=== PATIENT | male | born 1960 ===

== ENCOUNTER → 2016-03-13 | Outpatient (CLI) | payer BC | LOC: GMA 17:27 | PROVIDERS: ATTEND Nurse Practitioner Family | DX: R10.84 Generalized abdominal pain (principal); R07.9 Chest pain, unspecified ==

== ENCOUNTER → 2016-03-26 | Outpatient (CLI) | payer SELFPAY ==
--- NOTE | 2016-03-26 11:25 | US ---
EXAM DESCRIPTION: US ABDOMEN CLINICAL HISTORY: GENERALIZED ABDOMINAL PAIN COMPARISON: None Available. TECHNIQUE: Complete abdominal ultrasound FINDINGS: The liver is hyperechoic consistent with diffuse moderate fatty infiltration. There is no focal hepatic mass. The gallbladder is well seen and unremarkable. There are no gallstones. There is no gallbladder wall thickening. The common bile duct is normal in caliber measuring 4.3. The pancreas and the spleen are unremarkable. The kidneys are normal in size, shape, and echotexture. The IVC and the proximal aorta are unremarkable. Note is made of an umbilical hernia which appears to contain a portion of the greater omentum. IMPRESSION: 1. Fatty infiltration of the liver 2. Umbilical hernia Electronically signed by: Be Galindo MD 03/26/2016 11:23
== END | disposition home or self-care (01) ==
LOC: US 07:51
PROVIDERS: ATTEND Nurse Practitioner Family
DX: R10.84 Generalized abdominal pain (principal)

== ENCOUNTER → 2016-09-26 | Outpatient (CLI) | payer BC | END | disposition home or self-care (01) | LOC: GMAM 14:30 | PROVIDERS: ATTEND Family Medicine | DX: R31.21 Asymptomatic microscopic hematuria (principal) ==

== ENCOUNTER 2016-12-06 07:00 | Day surgery (SDC) | payer BC ==
--- NOTE | 2016-11-30 11:12 | RAD ---
EXAM DESCRIPTION: Chest,2 Views CLINICAL HISTORY: 56 years Male, PRE OP COMPARISON: 03/13/2016 IMPRESSION: Heart size and pulmonary vascularity are within normal limits. There is no airspace consolidation, pleural effusion, or pneumothorax. No acute osseous abnormality. Electronically signed by: Garrett Jaquez MD 11/30/2016 11:10 AM CDT
[~2016-12-06 07:00] MED LIST: DEXAMETHASONE INJ 10 MG/ML VIAL ONE; KETOROLAC TROMETHAMINE INJ 30 MG/ML VIAL ONE; LIDOCAINE 1% 10 ML VIAL INJ ONE; METOCLOPRAMIDE HCL INJ 10 MG/2 ML VIAL ONE; PROPOFOL 200 MG/20 ML VIAL IV ONE; diphenhydrAMINE HCL 50 MG/ML VIAL ONE; raNITIdine HCL INJ 25 MG/ML VIAL ONE
[2016-12-06] MEDS ORDERED: LACTATED RINGERS 1,000 ML ONE (07:14)
[2016-12-06] MEDS ORDERED: SODIUM CHL 0.9% 100ML MINI-BAG 100 ML IVPB ONE (07:14)
[2016-12-06] MEDS ORDERED: ceFAZolin SODIUM 1 GM VIAL ONE (07:14)
[2016-12-06] MEDS ORDERED: MIDAZOLAM INJ 2 MG/2 ML VIAL ONE (08:31)
[2016-12-06] MEDS ORDERED: BUPIVACAINE 0.25% W/EPI 50 ML VIAL INJ ONE (08:32)
[2016-12-06] MEDS ORDERED: fentaNYL CITRATE INJ 50 MCG/ML AMP ONE (08:32)
[2016-12-06] MEDS ORDERED: HYDROmorphone HCL INJ 2 MG/ML VIAL ONE (09:26)
[2016-12-06] MEDS ORDERED: ONDANSETRON INJ 4 MG/2 ML VIAL ONE (10:42)
--- NOTE | 2016-12-06 11:34 | OP ---
DATE OF PROCEDURE: 12/06/16 PREOPERATIVE DIAGNOSIS: 1. Reducible umbilical hernia. POSTOPERATIVE DIAGNOSIS: 1. Reducible umbilical hernia. PROCEDURE: 1. Repair of umbilical hernia. SURGEON: Justin Moreno MD. ARCHITECTURAL INTERN: None. ANESTHESIA: Local infiltration of 0.25% Marcaine with epinephrine and general laryngeal mask anesthesia. INDICATION: The patient is a 56-year-old male who has a mass at his umbilicus for approximately a year. It has gotten somewhat more uncomfortable, especially after recent cough and cold. He was brought to the Surgical Suite today for repair with Surgimesh onlay graft after the risks, benefits and alternatives to the procedure were discussed and accepted. FINDINGS: The hernia defect was approximately 1 by 1.5 cm with the long value transversely. There was omentum in the umbilicus and this was reducible. PROCEDURE: After adequate general laryngeal mask anesthesia was obtained, the patient was prepped and draped in the usual sterile manner. He had been given 2 grams of IV Ancef. Surgical time-out was taken. An infraumbilical incision was made first with infiltration of anesthesia and then with a sharp knife. Dissection was carried down through the skin and subcutaneous tissue using electrocautery. Dissection was carried down to the abdominal wall midline fascia. The hernia sac was dissected free circumferentially using electrocautery and blunt dissection. The hernia was then incised at its neck at the level of the abdominal wall fascia. The omental tissue was dissected free and reduced below the floor of the abdominal wall fascia. The defect was then closed with 3 [id number] sutures of #1 PDS. These were placed initially and then tightened and tied sequentially. When this was done, the wound was irrigated with saline. The subcutaneous fat was dissected free off the fascia circumferentially. Eventually, a 6.5 by 5 cm graft of Surgimesh was placed over the repair, sutured in place with interrupted 2-0 Prolene and 2-0 Vicryl sutures. When this was done, again, the wound was irrigated with saline. Hemostasis was noted to be adequate. The umbilicus was sutured to the abdominal wall fascia and the mesh with a [id number] suture of 2-0 Prolene. When this was done, the subcutaneous tissues were reapproximated with 3-0 Vicryl sutures and the skin edges were approximated with a skin stapler. Sterile dressing was applied. Abdominal binder was applied. The patient was awakened and taken to the Recovery Room in good and stable condition. Estimated blood loss was less than 25 mL. All sponge, needle and instrument counts were correct. #[id number] [facility]
[2016-12-06 12:04] VITALS: BP 128/80; TEMP 97.2; O2SAT 96
== END 2016-12-06 11:55 | disposition home or self-care (01) ==
LOC: AMB 07:00
PROVIDERS: ATTEND Surgery
DX: K42.9 Umbilical hernia without obstruction or gangrene (principal); I10 Essential (primary) hypertension; K21.9 Gastro-esophageal reflux disease without esophagitis; F41.8 Other specified anxiety disorders; Z96.652 Presence of left artificial knee joint; Z88.8 Allergy status to other drugs, medicaments and biological substances; Z87.891 Personal history of nicotine dependence; Z79.899 Other long term (current) drug therapy
CPT/HCPCS: 00830; 36415; 49585; 71020; 80053; 81001; 85025; 93005; J0690; J1100; J1170; J1200; J1885; J2250; J2405; J2765; J2780; J3010; J3490; J7050; J7120

== ENCOUNTER → 2017-05-24 | Outpatient (CLI) | payer BC | END | disposition home or self-care (01) | LOC: GMAM 10:38 | PROVIDERS: ATTEND Family Medicine | DX: Z12.5 Encounter for screening for malignant neoplasm of prostate (principal) ==

== ENCOUNTER → 2017-07-23 | Outpatient (CLI) | payer BC | LOC: GMAHI 16:39 | PROVIDERS: ATTEND Nurse Practitioner Family | DX: M79.609 Pain in unspecified limb (principal) ==

== ENCOUNTER 2019-07-16 13:00 | Emergency (ER) | payer BC ==
[2019-07-16 14:06] VITALS: O2SAT 95
--- NOTE | 2019-07-16 14:15 | RAD ---
EXAM DESCRIPTION: Chest,1 View CLINICAL HISTORY: vertigo, near syncope COMPARISON: Chest radiograph dated November 30, 2016 TECHNIQUE: One view radiograph of the chest FINDINGS: Cardiac silhouette shows normal heart size. Pulmonary vascularity is within normal limits. Lungs show no confluent infiltrates. No pleural effusion. No pneumothorax. No acute osseous abnormality. IMPRESSION: No acute cardiopulmonary process. Electronically signed by: Kwabena Mc MD 07/16/2019 2:13 PM CDT
[2019-07-16] MEDS: MECLIZINE HCL 12.5 MG TAB PO ONE (14:18)
--- NOTE | 2019-07-16 14:20 | CT ---
EXAM DESCRIPTION: Head CLINICAL HISTORY: left parietal headache and vertigo COMPARISON: None available TECHNIQUE: Non contrast cranial CT This exam was performed according to our departmental dose-optimization program, which includes automated exposure control, adjustment of the mA and/or kV according to patient size and/or use of iterative reconstruction technique. FINDINGS: Ventricles and sulci are unremarkable for age. There is no hemorrhage or mass or subdural hematoma. There are no significant white matter abnormalities detected. The calvarium is unremarkable. The visualized paranasal sinuses and the mastoids are clear. IMPRESSION: 1. Normal CT head Electronically signed by: Trevin Kiran MD 07/16/2019 2:18 PM CDT
[2019-07-16] MEDS: AMOXICILLIN & POT CLAVULANATE 875 MG TAB PO ONE (15:08)
[2019-07-16] MEDS: predniSONE 20 MG TAB PO ONE (15:08)
--- NOTE | 2019-07-16 15:13 | ED.PDOC ---
History of Present Illness - General Chief Complaint: Syncope/Near Syncope Stated Complaint: dizzyness while in the shower Time Seen by Provider: 07/16/19 13:05 Source: patient Exam Limitations: no limitations - History of Present Illness Initial Comments: After having had an episode of what sounds like true vertigo while in the shower about 4 hours prior. The episode lasted about 5 minutes then has left him with some disequilibrium. No other residual neurological changes. He did get sick to his stomach and throw up during the episode. He does have a headache to the left parietal area currently but he has had a history of very extensive and frequent headaches in the past. He denies any recent head CTs. No neurological deficits at this time. He is alert oriented and ambulatory. No abnormal nystagmus. Head impulse testing possibly shows a mild impingement when turning his head towards the left. Tympanic membranes actually look clear but have some increased pressure. No fever. No altered mental status. No significant vertical skew deviation. The patient is pleasant and cooperative and aside from mild dizziness currently he is doing fine. No loss of sensation or strength during the episode. No loss of vision during the episode. He describes the room is spinning during the episode. No difficulty with swallowing or talking. No current difficulty with proprioception. He does report of longstanding history of tinnitus and mild hearing loss. Timing/Duration: 4-6 hours Severity: mild Improving Factors: nothing Worsening Factors: movement Associated Symptoms: malaise, nausea/vomiting Allergies/Adverse Reactions: Allergies Hydrocodone Allergy (Verified 11/30/16 11:37) Home Medications: Ambulatory Orders Lisinopril 5 mg PO BEDTIME 11/30/16 Montelukast [Singulair] 10 mg PO BEDTIME 11/30/16 Omeprazole [PriLOSEC Cap] 20 mg PO BEDTIME 11/30/16 Amoxicillin & Pot Clavulanate [Augmentin Tab] 875 mg PO BID #14 tab 07/16/19 Meclizine HCl [Meclizine 25] 25 mg PO Q8HR PRN #20 tab 07/16/19 predniSONE [Prednisone] 20 mg PO DAILY #7 tab 07/16/19 Review of Systems - Review of Systems Constitutional: States: malaise EENTM: States: nose congestion Respiratory: States: no symptoms reported Cardiology: States: no symptoms reported Gastrointestinal/Abdominal: States: nausea, vomiting Genitourinary: States: no symptoms reported Musculoskeletal: States: no symptoms reported Skin: States: no symptoms reported Neurological: States: see HPI Endocrine: States: no symptoms reported Hematologic/Lymphatic: States: no symptoms reported All other Systems: No Change from Baseline Past Medical History (General) - Patient Medical History Hx Congestive Heart Failure: No Hx Hypertension: Yes Hx Diabetes: No Hx MRSA: No - Vaccination History Hx Tetanus, Diphtheria Vaccination: No Hx Influenza Vaccination: No - Activities of Daily Living Hospice Agency (if applicable):: None - Female History Patient is a Female of Child Bearing Age (10 -59 yrs old): No - Triage Comment ED Triage Comment: pt voices dizziness and syncope-like symptoms upon getting out of the shower this morning. pt voices that everything started spinning and he got nauseated with a pounding headache. pt conversing with ease, alert and oriented x3. no s/s of distress at this time. Family Medical History - Family History Mother Family History: Unknown Physical Exam - Physical Exam General Appearance: Alert, Comfortable, No apparent distress Eye Exam: bilateral normal Ears, Nose, Throat: hearing grossly normal, normal pharynx Neck: full range of motion, supple Respiratory: lungs clear, normal breath sounds, no respiratory distress, no accessory muscle use Cardiovascular/Chest: normal peripheral pulses, regular rate, rhythm, no edema Peripheral Pulses: radial,right: 2+, radial,left: 2+ Gastrointestinal/Abdominal: non tender, soft Rectal Exam: deferred Back Exam: no CVA tenderness, no vertebral tenderness Extremity: normal range of motion, non-tender, normal inspection, no pedal edema, normal capillary refill 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, no motor/sensory deficits, alert, normal mood/affect, oriented x 3 Skin Exam: normal color Comments: Vital Signs - 24 hr 07/16/19 07/16/19 07/16/19 13:05 13:26 13:28 Temperature 96.7 F L 96.7 F L 96.7 F L Pulse Rate [ 70 70 60 brachial] Respiratory 18 18 18 Rate Blood Pressure 134/99 143/88 157/93 [Left Arm] O2 Sat by Pulse 95 96 95 Oximetry 07/16/19 07/16/19 13:30 14:01 Temperature 96.7 F L Pulse Rate [ 71 80 brachial] Respiratory 18 18 Rate Blood Pressure 144/100 124/93 [Left Arm] O2 Sat by Pulse 96 95 Oximetry Progress - Progress Progress: 07/16/19 15:15 The patient is a 58-year-old male presented emergency room after an episode of vertigo. Head CT and chest x-ray along with telemetry and lab work are reassuring. 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 We will however go ahead and treat for the possibility of an acute inflammatory labyrinthitis with Augmentin and prednisone. I do want him to follow back up with his primary care doctor within the next week to 10 days for repeat evaluation. ER warnings are given for any obvious worsening. White blood cell count was mildly elevated at 13,000 here today. christian bazan [id number] - Results/Orders Results/Orders: Laboratory Tests 07/16/19 07/16/19 07/16/19 13:35 13:35 13:35 WBC 13.1 H RBC 5.30 Hgb 17.6 Hct 51.6 MCV 97.4 H MCH 33.1 H MCHC 34.0 RDW 14.4 Plt Count 165 MPV 9.1 Absolute Neuts (auto) 11.70 H Absolute Lymphs (auto) 1.00 Absolute Monos (auto) 0.40 Absolute Eos (auto) 0.00 Absolute Basos (auto) 0.10 Neutrophils % 89.0 H Lymphocytes % 7.5 L Monocytes % 2.9 Eosinophils % 0.1 L Basophils % 0.5 PT 10.6 INR 1.07 PTT (SP) 18.1 L Sodium 139 Potassium 3.7 Chloride 105 Carbon Dioxide 25 Anion Gap 12.7 BUN 9 Creatinine 1.08 BUN/Creatinine Ratio 8.3 L Random Glucose 128 H Serum Osmolality 277.9 Calcium 9.2 Magnesium 2.0 Total Bilirubin 1.1 H AST 29 ALT 48 Alkaline Phosphatase 71 Creatine Kinase 61 CK-MB (CK-2) 1.1 CK-MB (CK-2) % Not Reportable Troponin I < 0.02 B-Natriuretic Peptide 23.7 Serum Total Protein 7.6 Albumin 4.5 Globulin 3.1 Albumin/Globulin Ratio 1.[address] and chest x-ray are reassuring. See reports for details. Telemetry monitoring shows significant sinus arrhythmia with fairly frequent PVCs. EKG shows the same with a sinus rhythm at 78 bpm. Normal axis. Normal R wave progression. No definitive ST segment or T wave changes indicative of acute ischemia. Normal QT interval. Departure - Departure Clinical Impression: Vertigo Disposition: Discharge to Home or Self Care Condition: Fair Departure Forms: ED Discharge - Pt. Copy, Patient Portal Self Enrollment Instructions: Labyrinthitis, Vertigo (a Type of Dizziness) (DC), Vestibular Exercises Diet: regular diet Activity: increase activity as tolerated Referrals: Trevin Bazan MD [Primary Care Provider] - 1-2 Weeks Prescriptions: Meclizine HCl [Meclizine 25] 25 mg PO Q8HR PRN #20 tab PRN Reason: Dizziness Amoxicillin & Pot Clavulanate [Augmentin Tab] 875 mg PO BID #14 tab predniSONE [Prednisone] 20 mg PO DAILY #7 tab Home Medications: Ambulatory Orders Lisinopril 5 mg PO BEDTIME 11/30/16 Montelukast [Singulair] 10 mg PO BEDTIME 11/30/16 Omeprazole [PriLOSEC Cap] 20 mg PO BEDTIME 11/30/16 Amoxicillin & Pot Clavulanate [Augmentin Tab] 875 mg PO BID #14 tab 07/16/19 Meclizine HCl [Meclizine 25] 25 mg PO Q8HR PRN #20 tab 07/16/19 predniSONE [Prednisone] 20 mg PO DAILY #7 tab 07/16/19 Additional Instructions: The patient is a 58-year-old male presented emergency room after an episode of vertigo. Head CT and chest x-ray along with telemetry and lab work are reassuring. 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 We will however go ahead and treat for the possibility of an acute inflammatory labyrinthitis with Augmentin and prednisone. I do want him to follow back up with his primary care doctor within the next week to 10 days for repeat evaluation. ER warnings are given for any obvious worsening. White blood cell count was mildly elevated at 13,000 here today.
[2019-07-16] MEDS: ACETAMINOPHEN-CAFF-BUTALBITAL 1 EA TAB PO ONE (15:22)
[2019-07-16 15:27] VITALS: BP 127/89; TEMP 97.2
== END 2019-07-16 15:26 | disposition home or self-care (01) ==
LOC: ER 13:00
DX: R42 Dizziness and giddiness (principal); I10 Essential (primary) hypertension; R51 Headache; R11.10 Vomiting, unspecified; I49.3 Ventricular premature depolarization; Z79.899 Other long term (current) drug therapy
CPT/HCPCS: 36415; 70450; 71045; 80053; 82550; 82553; 83735; 83880; 84443; 84484; 85025; 85610; 85730; 93005; J7512

== ENCOUNTER → 2019-07-20 | Outpatient (CLI) | payer BC | LOC: GMAM 14:22 | PROVIDERS: ATTEND Family Medicine | DX: E79.0 Hyperuricemia without signs of inflammatory arthritis and tophaceous disease (principal) ==

== ENCOUNTER → 2019-11-16 | Outpatient (CLI) | payer BC | LOC: GMAM 11:24 | PROVIDERS: ATTEND Family Medicine | DX: D51.9 Vitamin B12 deficiency anemia, unspecified (principal); I10 Essential (primary) hypertension; E79.0 Hyperuricemia without signs of inflammatory arthritis and tophaceous disease; E55.9 Vitamin D deficiency, unspecified ==

== ENCOUNTER → 2019-12-16 | Outpatient (CLI) | payer BC | LOC: LAB.O 17:45 | PROVIDERS: ATTEND Family Medicine | DX: U07.1 COVID-19 (principal) ==

== ENCOUNTER → 2019-12-18 | Outpatient (CLI) | payer BC | LOC: GMAM 10:52 | PROVIDERS: ATTEND Family Medicine | DX: U07.1 COVID-19 (principal); R71.8 Other abnormality of red blood cells; R09.02 Hypoxemia ==